=== PATIENT | female | born 1965 | race African-American/Black ===

== ENCOUNTER 2019-04-18 19:29 | Inpatient (IN) | payer MEDICAID, OTHER ==
[~2019-04-18] VITALS: Ht 162.6 cm; Wt 71.7 kg
[2019-04-18 19:43] VITALS: BP 160/89
--- NOTE | 2019-04-18 19:44 | NUR ---
TO BED # 07 AMBULATORY
[2019-04-18] MEDS ORDERED: NACL 0.9% 1,000 ML IV ONE ×2 (19:50→21:00)
--- NOTE | 2019-04-18 19:55 | NUR ---
PT PRESENTS W/C/O HIGH BLOOD SUGAR PER PTS NIECE. BS WAS TAKEN AT HOME AND REPORTED TO BE IN THE 300S. IN TRIAGE BS 331. PT AAOX4, GCS 15. RR EVEN/UNLABORED. NAD NOTED. SKIN WARM AND DRY TO TOUCH, COLOR APPRORPIATE FOR ETHNICITY. PT AMBULATORY. CAP REFILL<3. ER MD MADE AWARE
[2019-04-18 20:18] LABS: BASOPHILS % (AUTO) 0.3 % (0.0-2.0); EOSINOPHILS # (AUTO) 0.1 K/uL (0-0.4); EOSINOPHILS % (AUTO) 1.6 % (0.0-4.0); HEMATOCRIT 32.2 % (36-48); HEMOGLOBIN 10.4 g/dL (12.0-16.0); LYMPHOCYTES # (AUTO) 1.3 K/uL (2.5-16.5); LYMPHOCYTES % (AUTO) 24.9 % (20.5-51.1); MEAN CORPUSCULAR HEMOGLOBIN 25 pg (27-31); MEAN CORPUSCULAR HGB CONC 33 g/dL (33-37); MEAN CORPUSCULAR VOLUME 76.8 fL (80-94); MONOCYTES # (AUTO) 0.4 K/uL (0.8-1.0); MONOCYTES % (AUTO) 7.5 % (1.7-9.3); NEUTROPHILS # (AUTO) 3.4 K/uL (1.8-7.7); NEUTROPHILS % (AUTO) 65.7 % (42.2-75.2); PLATELET COUNT (AUTO) 220 K/uL (140-450); RED BLOOD CELL COUNT(AUTO) 4.19 MIL/uL (4.20-5.40); RED CELL DISTRIBUTION WIDTH 12.9 % (11.6-13.7); WHITE BLOOD COUNT (AUTO) 5.1 K/uL (4.8-10.8)
[2019-04-18 20:35] LABS: ANION GAP 15.2 (8-16); CARBON DIOXIDE 26.9 mmol/L (21-32); CREATININE 0.9 mg/dL (0.6-1.3); POTASSIUM 4.1 mmol/L (3.5-5.1)
[2019-04-18 20:42] LABS: ALBUMIN 3.9 g/dL (3.4-5.0); TOTAL BILIRUBIN 0.2 mg/dL (0.0-1.0)
[2019-04-18] MEDS ORDERED: HYDR-86 PO (20:44)
[2019-04-18] MEDS ORDERED: MIC5 PO (20:44)
[2019-04-18] MEDS ORDERED: METF1000 PO (20:44)
[2019-04-18] MEDS ORDERED: ASPI-1718 PO (20:44)
[2019-04-18] MEDS ORDERED: INSULIN REGULAR, HUMAN 100 UNIT/ML VIAL IV ONE (21:00)
[2019-04-18] MEDS ORDERED: ONDANSETRON 4 MG/2 ML VIAL IM/IVP PRN (21:20)
[2019-04-18] MEDS ORDERED: ACETAMINOPHEN 325 MG TAB PO PRN (21:20)
[2019-04-18] MEDS ORDERED: DEXTROSE 50% 50 ML SYR IVP PRN (21:25)
[2019-04-18 21:41] LABS: BILIRUBIN,URINE NEGATIVE (NEGATIVE); BLOOD, URINE TRACE-L (NEGATIVE); LEUKOCYTE ESTERASE ,URINE TRACE (NEGATIVE); NITRITE, URINE NEGATIVE (NEGATIVE); PH,URINE 5.5 (5.0-9.0); UGLUCOSE 1+ (NEGATIVE)
[2019-04-18 21:48] LABS: BARBITURATE, URINE NEG. ng/ml (NEG <=200); BENZODIAZEPINE, URINE NEG. ng/mL (NEG <=200); CANNABINOID, URINE NEG. ng/mL (NEG <=50); COCAINE, URINE NEG. ng/mL (NEG <=300); OPIATE, URINE NEG. ng/mL (NEG <=2000); PHENCYCLIDINE SCREEN,URINE NEG. ng/mL (NEG <=25)
--- NOTE | 2019-04-18 21:51 | NUR ---
Shira miles in [facility] - 04/18/19 at 2151 by TENISHA PT TAKEN TO RAD
[2019-04-18 21:52] LABS: MAGNESIUM 1.5 mg/dL (1.8-2.4); PHOSPHORUS 2.9 mg/dL (2.5-4.9); THYROID STIMULATING HORMONE 8.29 uIU/mL (0.34-3.74)
[2019-04-18 21:56] LABS: APPEARANCE,URINE HAZY (CLEAR)
[2019-04-18 21:59] LABS: PROTHROMBIN TIME 9.1 secs (10.8-13.4)
--- NOTE | 2019-04-18 22:00 | NUR ---
Patient arrived in unit via wheelchair, accompanied SCREEN PRINTER and katia Villanueva. Patient able to ambulate from wheelchair to bed without assistance. Patient A/Ox4, able to make needs known. Introduced self, updated board, oriented patient to room and hospital environment. No SOB or distress noted, on room air. IV site on left wrist, 20 gauge, running IVF at bolus rate. Skin intact. Chief complaint of hyperglycemia for 3 weeks, diagnosis is Uncontrolled DM and Dehydration. Bed in the lowest position, smita llight within reach. Initial assessment done. Will continue to monitor. Addendum: 04/19/19 at 9179 by Bossman Elias RN IV site right wrist
--- NOTE | 2019-04-18 22:00 | NUR ---
Patient will be admitted to care of DR. MIRANDA. Admited to [facility]. Will go to [id number]. Belongings list completed. Report to JAQUI OVALLE.
[2019-04-18 22:21] LABS: COLOR,URINE STRAW (YELLOW); RBC,URINE NONE SEEN /HPF (0-5); WBC,URINE 0-5 /HPF (0-5)
[2019-04-18] MEDS: NACL 0.9% 1,000 ML IV SCH (22:29)
[2019-04-18] MEDS ORDERED: INSULIN LANTUS 100 UNITS/ML 10 ML VIAL SUBQ SCH (23:00)
[2019-04-18] MEDS ORDERED: MAG SULF 2000 MG/WATER PREMIX 50 ML IV SCH (23:30)
--- NOTE | 2019-04-18 23:40 | NUR ---
Due meds given, tolerated well.
[2019-04-18] MEDS ORDERED: BENZONATATE 100 MG CAPLF PO PRN (23:55)
[2019-04-19] VITALS: BP 150/78
[2019-04-19] MEDS ORDERED: LEVOFLOXACIN 250 MG/D5 PREMIX 50 ML IV SCH
--- NOTE | 2019-04-19 00:05 | NUR ---
Vitals checked, no distress noted.
--- NOTE | 2019-04-19 02:39 | NUR ---
Checks made; patient asleep, visible chest rise and fall noted.
--- NOTE | 2019-04-19 05:30 | NUR ---
Rounds done; patient awake, sitting on side of the bed, watching TV. No distress noted.
[2019-04-19] MEDS: BLOOD GLUCOSE MONITORING 1 DEV DEV FS SCH ×4 (06:12→21:03)
[2019-04-19] MEDS: INSULIN LISPRO SLIDING SCALE 100 UNITS/ML VIAL SUBQ PRN ×2 (06:18→17:10)
[2019-04-19] MEDS: glyBURIDE 5 MG TAB PO SCH ×2 (06:24→17:05)
--- NOTE | 2019-04-19 07:10 | NUR ---
Endorsed patient to AM shift RN for continuity of care; patient in stable condition.
--- NOTE | 2019-04-19 07:12 | NUR ---
RECEIVED REPORT FROM NIGHT RN. PT RESTING IN BED. AAOX4. NO S/S OF ACUTE DISTRESS. PT DENIES PAIN. IV SITE PATENT AND INTACT. CALL LIGHT WITHIN REACH. SAFETY MEASURES ENSURED. WILL CONTINUE TO MONITOR.
[2019-04-19 07:21] LABS: MAGNESIUM 1.8 mg/dL (1.8-2.4); PHOSPHORUS 2.7 mg/dL (2.5-4.9)
[2019-04-19 07:28] LABS: CARBON DIOXIDE 24.3 mmol/L (21-32); CREATININE 0.7 mg/dL (0.6-1.3); POTASSIUM 4.3 mmol/L (3.5-5.1)
[2019-04-19 07:35] LABS: BASOPHILS % (AUTO) 0.3 % (0.0-2.0); EOSINOPHILS # (AUTO) 0.1 K/uL (0-0.4); EOSINOPHILS % (AUTO) 1.4 % (0.0-4.0); HEMATOCRIT 39.6 % (36-48); HEMOGLOBIN 12.9 g/dL (12.0-16.0); LYMPHOCYTES # (AUTO) 1.2 K/uL (2.5-16.5); LYMPHOCYTES % (AUTO) 23.2 % (20.5-51.1); MEAN CORPUSCULAR HEMOGLOBIN 25 pg (27-31); MEAN CORPUSCULAR HGB CONC 32 g/dL (33-37); MEAN CORPUSCULAR VOLUME 76.5 fL (80-94); MONOCYTES # (AUTO) 0.3 K/uL (0.8-1.0); MONOCYTES % (AUTO) 5.8 % (1.7-9.3); NEUTROPHILS # (AUTO) 3.5 K/uL (1.8-7.7); NEUTROPHILS % (AUTO) 69.3 % (42.2-75.2); PLATELET COUNT (AUTO) 270 K/uL (140-450); RED BLOOD CELL COUNT(AUTO) 5.18 MIL/uL (4.20-5.40); RED CELL DISTRIBUTION WIDTH 12.9 % (11.6-13.7); WHITE BLOOD COUNT (AUTO) 5.1 K/uL (4.8-10.8)
[2019-04-19 08:00] VITALS: BP 147/84
[2019-04-19] MEDS: FERROUS SULFATE 325 MG TABEC PO SCH (08:00)
[2019-04-19 08:28] LABS: CHOL/HDL RATIO 3.4 (1-4.5)
[2019-04-19] MEDS: metFORMIN 500 MG TAB PO SCH ×2 (08:47→17:05)
[2019-04-19] MEDS: ASPIRIN 81 MG TAB.CHEW PO SCH (08:47)
[2019-04-19] MEDS: LISINOPRIL 10 MG TAB PO SCH (08:48)
[2019-04-19] MEDS: GABAPENTIN 300 MG CAP PO SCH ×3 (08:48→17:05)
[2019-04-19] MEDS: HYDROCHLOROTHIAZIDE 25 MG TAB PO SCH (08:48)
--- NOTE | 2019-04-19 09:00 | NUR ---
PATIENT HAS BEEN SCREENED AND CATEGORIZED MODERATE NUTRITION RISK. PATIENT WILL BE SEEN WITHIN 3-5 DAYS OF ADMISSION. 04/21/19 04/23/[address]
[2019-04-19] MEDS ORDERED: FERROUS SULFATE 325 MG TABEC PO SCH (09:23)
--- NOTE | 2019-04-19 11:37 | NUR ---
PT AMBULATED TO BATHROOM. NO S/S OF ACUTE DISTRESS. PT DENIES PAIN. IV SITE PATENT AND INTACT. CALL LIGHT WITHIN REACH. SAFETY MEASURES ENSURED. WILL CONTINUE TO MONITOR.
[2019-04-19] MEDS: NACL 0.9% 1,000 ML IV SCH (13:00)
[2019-04-19 16:00] VITALS: BP 135/82
--- NOTE | 2019-04-19 16:23 | NUR ---
PT RESTING IN BED. NO S/S OF ACUTE DISTRESS. PT DENIES PAIN. IV SITE PATENT. CALL LIGHT WITHIN REACH. WILL CONTINUE TO MONITOR.
--- NOTE | 2019-04-19 19:05 | NUR ---
RECEIVED BEDSIDE REPORT FROM DAY SHIFT NURSE. PATIENT IS AWAKE, ALERT, AND COOPERATIVE. RESPIRATION EVEN UNLABORED ON ROOM AIR. NO DISTRESS NOTED. SKIN IS WARM AND DRY. IV PATENT AND INTACT. DENIES PAIN. NO S/SX OF HYPO/HYPERGLYCEMIA NOTED. ALL SAFETY MEASURES IN PLACE. PLAN OF CARE WAS DISCUSSED. CALL LIGHT WITHIN REACH AND VERBALIZES ITS USE. WILL CONTINUE TO MONITOR.
--- NOTE | 2019-04-19 20:00 | NUR ---
INITIAL ASSESSMENT DONE. VITALS WERE TAKEN. PATIENT IN CONDITION STABLE. NO DISTRESS NOTED. WILL CONTINUE TO MONITOR.
[2019-04-19] MEDS ORDERED: INSULIN LANTUS 100 UNITS/ML 10 ML VIAL SUBQ SCH ×2 (21:00)
--- NOTE | 2019-04-19 21:00 | NUR ---
ALL SCHEDULED MEDS WERE GIVEN PER ORDER. NO ASE NOTED. WILL CONTINUE TO MONITOR.
--- NOTE | 2019-04-19 22:00 | NUR ---
PATIENT SLEEPING RESPIRATION EVEN UNLABORED ON ROOM AIR. NO DISTRESS NOTED. WILL CONTINUE TO MONITOR.
[2019-04-20] VITALS: BP 116/72
--- NOTE | 2019-04-20 | NUR ---
VITALS WERE TAKEN. PATIENT IN STABLE CONDITION. NO DISTRESS NOTED. WILL CONTINUE TO MONITOR.
--- NOTE | 2019-04-20 02:00 | NUR ---
CHECKED PATIENT. PATIENT SLEEPING RESPIRATION EVEN UNLABORED ON ROOM AIR. NO DISTRESS NOTED. WILL CONTINUE TO MONITOR.
--- NOTE | 2019-04-20 04:00 | NUR ---
CHECKED PATIENT. PATIENT SLEEPING RESPIRATION EVEN UNLABORED ON ROOM AIR. NO DISTRESS NOTED, WILL CONTINUE TO MONITOR.
[2019-04-20] MEDS: NACL 0.9% 1,000 ML IV SCH (05:45)
[2019-04-20] MEDS ORDERED: LEVOTHYROXINE 0.025 MG TAB PO SCH (06:30)
[2019-04-20] MEDS: BLOOD GLUCOSE MONITORING 1 DEV DEV FS SCH ×2 (06:31→11:30)
[2019-04-20] MEDS: glyBURIDE 5 MG TAB PO SCH (06:32)
[2019-04-20] MEDS ORDERED: LEVO0.0211 PO (06:38)
[2019-04-20] MEDS ORDERED: LANTUS SUBQ (06:38)
[2019-04-20] MEDS ORDERED: GABA-638 PO (06:38)
[2019-04-20] MEDS ORDERED: HUMSLIDE SUBQ (06:41)
--- NOTE | 2019-04-20 07:09 | NUR ---
ENDORSED PATIENT TO DAY SHIFT NURSE FOR CONTINUITY OF CARE. PATIENT IN STABLE CONDITION.
--- NOTE | 2019-04-20 07:10 | NUR ---
RECEIVED BEDSIDE REPORT FROM MANNEQUIN REFINISHER NURSE. PATIENT IS AWAKE, ALERT AND ORIENTEDX4. NO SIGNS OF DISTRESS ON RA. SKIN IS INTACT. IV L WRIST 20G INFUSING NS AT 60 CLEAN, DRY AND INTACT. PATIENT IS AMBULATORY, CONTINENT. BED IN LOW POSITION. CALL LIGHT WITHIN REACH. PATIENT ABLE TO MAKE NEEDS KNOWN. WILL CONTINUE TO MONITOR THE PATIENT.
[2019-04-20 07:15] LABS: BASOPHILS % (AUTO) 0.5 % (0.0-2.0); EOSINOPHILS # (AUTO) 0.1 K/uL (0-0.4); EOSINOPHILS % (AUTO) 1.5 % (0.0-4.0); HEMATOCRIT 36.7 % (36-48); HEMOGLOBIN 11.8 g/dL (12.0-16.0); LYMPHOCYTES # (AUTO) 1.4 K/uL (2.5-16.5); LYMPHOCYTES % (AUTO) 30.1 % (20.5-51.1); MEAN CORPUSCULAR HEMOGLOBIN 25 pg (27-31); MEAN CORPUSCULAR HGB CONC 32 g/dL (33-37); MONOCYTES # (AUTO) 0.3 K/uL (0.8-1.0); MONOCYTES % (AUTO) 6.8 % (1.7-9.3); NEUTROPHILS # (AUTO) 2.8 K/uL (1.8-7.7); NEUTROPHILS % (AUTO) 61.1 % (42.2-75.2); PLATELET COUNT (AUTO) 250 K/uL (140-450); RED BLOOD CELL COUNT(AUTO) 4.76 MIL/uL (4.20-5.40); WHITE BLOOD COUNT (AUTO) 4.6 K/uL (4.8-10.8)
[2019-04-20 07:32] LABS: ANION GAP 13.3 (8-16); CARBON DIOXIDE 26.7 mmol/L (21-32); CREATININE 0.8 mg/dL (0.6-1.3)
[2019-04-20 08:00] VITALS: BP 131/74
[2019-04-20 08:24] LABS: T4 (THYROXINE) 7.4 ug/dL (4.5-12.0)
[2019-04-20] MEDS: ASPIRIN 81 MG TAB.CHEW PO SCH (08:44)
[2019-04-20] MEDS: FERROUS SULFATE 325 MG TABEC PO SCH (08:44)
[2019-04-20] MEDS: metFORMIN 500 MG TAB PO SCH (08:44)
[2019-04-20] MEDS: LISINOPRIL 10 MG TAB PO SCH (08:44)
[2019-04-20] MEDS: GABAPENTIN 300 MG CAP PO SCH ×2 (08:45→13:00)
[2019-04-20] MEDS: HYDROCHLOROTHIAZIDE 25 MG TAB PO SCH (08:45)
--- NOTE | 2019-04-20 08:54 | NUR ---
ADMINISTERED MEDS. EDUCATED ON SIDE EFFECTS. PATIENT TOLERATED WELL. NO SIGNS OF DISTRESS. WILL CONTINUE TO MONITOR THE PATIENT
--- NOTE | 2019-04-20 10:00 | NUR ---
PATIENT RESTING IN BED. NO SIGNS OF DISTRESS. WILL CONTINUE TO MONITOR THE PATIENT
--- NOTE | 2019-04-20 10:25 | NUR ---
CONTACTED SAMI HERMAN AT [phone], SPOKE TO FROYLAN KING. ALL CLINICALS, PT RECOMMENDATION AND ORDER FOR FWW FAXED TO [phone].
--- NOTE | 2019-04-20 11:35 | NUR ---
RECEIVED A CALL FROM FROYLAN GARCIA [facility], PROVIDED ME OF [employer] AT [phone]. CONTACTED [employer], LEFT MESSAGE. AWAITING FOR CALL BACK.
[2019-04-20 12:06] LABS: FOLIC ACID 17.4 ng/mL (>3.0)
--- NOTE | 2019-04-20 12:12 | NUR ---
CALLED [employer] AT [phone] AND SPOKE TO NEVILLE. SHE PROVIDED ME FAX NUMBER [phone] TO FAX ORDER AND PT RECOMMENDATION. ALL REQUIREMENTS FAXED.
--- NOTE | 2019-04-20 12:32 | NUR ---
PATIENT EATING WELL. NO SIGNS OF DISTRESS. WILL CONTINUE TO MONITOR THE PATIENT
--- NOTE | 2019-04-20 13:01 | NUR ---
ADMINISTERED MEDS. EDUCATED ON SIDE EFFECTS. WILL CONTINUE TO MONITOR THE PATIENT
--- NOTE | 2019-04-20 13:44 | NUR ---
CONTACTED PATIENT'S DAUGHTER GERARDO NEELY AT [phone], INFORMED HER THAT I AM STILL WORKING WITH THE [employer] FOR THE WALKER. AND STATED THAT IT'S OK WITH HER FOR THE WALKER TO BE DELIVERED AT THEIR HOME. PRIMARY RN MARIAA MADE AWARE
--- NOTE | 2019-04-20 14:00 | NUR ---
PATIENT SITTING IN BED. NO SIGNS OF DISTRESS. WILL CONTINUE TO MONITOR THE PATIENT
--- NOTE | 2019-04-20 14:39 | NUR ---
CALLED [employer] AT [phone]. SPOKE TO IFEANYI, PROVIDED ME WITH [employer] REP [phone] TO CONTACT. CONTACTED [employer] AT THE GIVEN NUMBER, LEFT A MESSAGE. AWAITING FOR CALL BACK.
--- NOTE | 2019-04-20 16:35 | NUR ---
CALLED SELENE HERMAN TO GIVE UPDATE REGARDING FWW. PROVIDED HER OF [employer]'S CONTACT NUMBER.
--- NOTE | 2019-04-20 16:36 | NUR ---
CONTACTED OF T[facility] OF [facility], HE SAID HE SENT A DISPATCH ALREADY TO DELIVER THE WALKER. PRIMARY RN MARIAA MADE AWARE.
--- NOTE | 2019-04-20 16:40 | NUR ---
EDUCATED ON DISEASE PROCESS, ABN S/SX, WHEN TO GO TO THE ER, EDUCATED ON FOLLOW UP W PCP, REMOVED IV, TIP INTACT, ID BANDS REMOVED, EDUCATED ON MEDS AND GAVE PRESCRIPTIONS, PATIENT VERBALIZED UNDERSTANDING. SIGNED PAPERWORK. PNA VACCINE REFUSED, FLU NOT IN SEASON. EDUCATED ON EFFECTS. PATIENT KNOWS WALKER WILL BE DELIVERED TO HOME, POSSIBLY ON TUESDAY. PATIENT LEFT IN WHEELCHAIR W FATHER TO GO HOME. PATIENT LEFT IN STABLE CONDITION
== END 2019-04-20 16:40 | disposition home or self-care (01) | DRG 422 ==
LOC: MED 19:29 → MTU 21:18
PROVIDERS: ADMIT General Practice; ATTEND General Practice
DX: E86.0 Dehydration (principal); E11.65 Type 2 diabetes mellitus with hyperglycemia; E87.8 Other disorders of electrolyte and fluid balance, not elsewhere classified; E83.42 Hypomagnesemia; E87.1 Hypo-osmolality and hyponatremia; E78.5 Hyperlipidemia, unspecified; I10 Essential (primary) hypertension; N39.0 Urinary tract infection, site not specified; D64.9 Anemia, unspecified; E02 Subclinical iodine-deficiency hypothyroidism; Z88.0 Allergy status to penicillin; I25.2 Old myocardial infarction; Z98.42 Cataract extraction status, left eye; Z91.19 Patient's noncompliance with other medical treatment and regimen; Z98.41 Cataract extraction status, right eye
CPT/HCPCS: 36415; 71045; 80048; 80053; 80305; 81001; 81025; 82607; 82746; 82948; 83036; 83540; 83690; 83735; 84100; 84436; 84443; 85025; 85045; 85610; 85730; 87081; 93925; 93970; 96361; 96374; 97110; 97116; 97161-GP; 97530; 99285; J1644; J1815; J1956; J3475; J7030; J7042; Q0092